=== PATIENT | female | born 1960 ===

== ENCOUNTER 2017-09-02 09:32 | Day surgery (SDC) | payer SELFPAY ==
[2015-11-20 09:34] VITALS: BMI 27.6
[2017-09-02] MEDS ORDERED: Lactated Ringer's 500 ML IV ONE (09:43)
[2017-09-02] MEDS ORDERED: Propofol 10 mg/ml Inj (20 ML) ONE (11:51)
[2017-09-02] MEDS ORDERED: Midazolam 2 MG/2 ML VIAL ONE (12:16)
[2017-09-02 12:43] VITALS: TEMP 97.6; O2SAT 100
[2017-09-02 13:01] VITALS: BP 107/67; PULSE 54; RESP 16
== END 2017-09-02 13:44 | disposition home or self-care (01) ==
LOC: H.ENDO 09:32
PROVIDERS: ATTEND Internal Medicine Gastroenterology
DX: Z12.11 Encounter for screening for malignant neoplasm of colon (principal); K62.1 Rectal polyp; K64.8 Other hemorrhoids
CPT/HCPCS: 45385; 88305; J2001; J2250; J2704; J7120

== ENCOUNTER 2017-09-06 08:51 | Emergency (ER) | payer SELFPAY ==
[2017-09-06 09:00] VITALS: BP 106/62; PULSE 62; RESP 16; TEMP 98.3; O2SAT 98
[2017-09-06 09:01] VITALS: BMI 27.9
--- NOTE | 2017-09-06 10:09 | ED PDOC ---
HPI: Dental Pain/Injury Time Seen by Provider: 09/06/17 09:19 Chief Complaint (Nursing): Dental Pain Chief Complaint (Provider): Dental Pain, Facial Pain History Per: Patient History/Exam Limitations: no limitations Onset/Duration Of Symptoms: Days (x3 weeks) Current Symptoms Are (Timing): Still Present Additional Complaint(s): 56 year old female presents to the ED for evaluation of left sided facial pain and toothache the past three weeks. Patient states that on 08/15/17 she had an implant placed in her upper left jaw by her dentist, and since then, despite taking Ibuprofen, she has had constant pain. She notes she was given a course of Augmentin that she completed, but did not take the percocet prescribed, only Ibuprofen. Over the past couple of days, she reports the pain has been worsening along with development of left sided sinus pain, prompting the visit. Denies seeing her dentist for a follow up appointment due to her being so busy. Otherwise, denies fever, headache, and bleeding to the implant site. PMD: Seth Olvera Past Medical History Reviewed: Historical Data, Nursing Documentation, Vital Signs Vital Signs: Last Vital Signs Temp 98.3 F 09/06/17 08:59 Pulse 62 09/06/17 08:59 Resp 16 09/06/17 08:59 BP 106/62 09/06/17 08:59 Pulse Ox 98 09/06/17 08:59 - Medical History PMH: Arthritis, Hypercholesterolemia Denies: Asthma, Atrial Fibrillation, CHF, COPD, Diabetes, HTN, Chronic Kidney Disease, Seizures - Surgical History Surgical History: Denies: CABG, Pacemaker Other surgeries: BLADDER REPAIR AND DENTAL IMPLANT - Family History Family History: States: Unknown Family Hx Denies: CAD - Social History Current smoker - smoking cessation education provided: No Alcohol: None Drugs: Denies - Home Medications Home Medications: Ambulatory Orders Medication Instructions Recorded Amoxicillin/Clavulanate [Augmentin 1 tab PO BID #20 tab 09/06/17 875 MG-125 MG] Ibuprofen [Motrin] 600 mg PO TID #30 tab 09/06/17 - Allergies Allergies/Adverse Reactions: Allergies Allergy/AdvReac Type Severity Reaction Status Date / Time No Known Allergies Allergy Verified 10/10/15 10:33 Review of Systems ROS Statement: Except As Marked, All Systems Reviewed And Found Negative Constitutional: Negative for: Fever ENT: Positive for: Nose Pain (left sinus), Other (left sided facial pain and toothache; implant in place to left upper jaw, no bleeding from the site) Neurological: Negative for: Headache Physical Exam - Reviewed Nursing Documentation Reviewed: Yes Vital Signs Reviewed: Yes - Physical Exam Appears: Positive for: No Acute Distress Head Exam: Positive for: ATRAUMATIC, NORMOCEPHALIC ENT: Positive for: Sinus Pain/Drainage (left maxillary tenderness), Other (left upper jaw missing several teeth, mild swelling of gum, no active bleeding, no discharge; no redness or tenderness to face) Extremity: Positive for: Normal ROM Lymphatic: Negative for: Other (cervical lymphadenopathy) Neurologic/Psych: Positive for: Alert, Oriented (x3). Negative for: Motor/ Sensory Deficits - ECG O2 Sat by Pulse Oximetry: 98 (RA) Pulse Ox Interpretation: Normal Medical Decision Making Medical Decision Making: Time: 09:40 Initial Impression: toothache, facial pain Ddx: Sinusitis, less likely dental abscess, post-operative pain Initial Plan: --Patient will be given an rx for Augmentin and Advil. She is advised to follow up with her dentist. Scribe Attestation: Documented by Cherelle Scanlon, acting as a scribe for Jazmín Cohen MD. Provider Scribe Attestation: All medical record entries made by the Scribe were at my direction and personally dictated by me. I have reviewed the chart and agree that the record accurately reflects my personal performance of the history, physical exam, medical decision making, and the department course for this patient. I have also personally directed, reviewed, and agree with the discharge instructions and disposition. Disposition - Clinical Impression Clinical Impression: Toothache, Sinusitis - Patient ED Disposition Is Patient to be Admitted: No Doctor Will See Patient In The: Office Counseled Patient/Family Regarding: Studies Performed, Diagnosis, Need For Followup - Disposition Referrals: Seth Olvera MD [Primary Care Provider] - Disposition: Routine/Home Disposition Time: 10:00 Condition: GOOD Additional Instructions: Take your medications as instructed. Follow up with your dentist in 2-3 days. Prescriptions: Amoxicillin/Clavulanate [Augmentin 875 MG-125 MG] 1 tab PO BID #20 tab Ibuprofen [Motrin] 600 mg PO TID #30 tab Instructions: Dental Pain (DC)
== END 2017-09-06 10:54 | disposition home or self-care (01) ==
LOC: SUPCPDRO 08:51 → H.ER 08:51
DX: J32.9 Chronic sinusitis, unspecified (principal); K08.89 Other specified disorders of teeth and supporting structures; E78.00 Pure hypercholesterolemia, unspecified